=== PATIENT | male | born 1955 | race Caucasian/White ===

== ENCOUNTER 2019-12-21 07:11 | Day surgery (SDC) | payer OTHER ==
[~2019-12-21] VITALS: Ht 185.4 cm; Wt 95.7 kg
[2019-12-21] MEDS ORDERED: LIDOCAINE-MPF 1%, 2ML ONE (07:40)
[2019-12-21] MEDS ORDERED: LACTATED RINGERS 1,000 ML IV SCH (07:41)
[2019-12-21 07:46] VITALS: BP 142/85
[2019-12-21] MEDS ORDERED: LIDOCAINE-MPF 1%, 2ML INFIL ONE (08:00)
[2019-12-21] MEDS ORDERED: FLUT1BLS INH (08:02)
[2019-12-21] MEDS ORDERED: DHA PO (08:02)
[2019-12-21] MEDS ORDERED: TAMS-11 PO (08:02)
[2019-12-21] MEDS ORDERED: OLME1TAB PO (08:02)
[2019-12-21] MEDS ORDERED: ROSU20TA2 PO (08:02)
[2019-12-21] MEDS ORDERED: D3 PO (08:02)
[2019-12-21] MEDS ORDERED: METF500T17 PO (08:02)
[2019-12-21] MEDS ORDERED: MIDAZOLAM 1 MG/ML, 2ML ONE (08:23)
[2019-12-21] MEDS ORDERED: FENTANYL PF 250 MCG/5ML ONE (08:23)
[2019-12-21 08:26] LABS: ALBUMIN 3.6 g/dL (3.4-5.0); ANION GAP 3 mmol/L (5-15); CALCIUM 8.3 mg/dL (8.5-10.1); CHLORIDE 110 mmol/L (98-107)
[2019-12-21 08:30] LABS: ALANINE AMINOTRANSFERASE 22 U/L (12-78); ALKALINE PHOSPHATASE 53 U/L (45-117); BILIRUBIN,TOTAL 0.7 mg/dL (0.2-1.0); CREATININE 0.86 mg/dL (0.7-1.3); TOTAL PROTEIN 7.7 g/dL (6.4-8.2)
[2019-12-21] MEDS ORDERED: HYDROmorphone 2 MG/ML, 1ML IVPush PRN (09:30)
[2019-12-21] MEDS ORDERED: hydrALAzine 20 MG/ML, 1ML IV PRN (09:30)
[2019-12-21] MEDS ORDERED: OXYcodone 5 MG/5 ML ORAL.SOL UDC PO PRN (09:30)
[2019-12-21] MEDS ORDERED: LABETALOL 5MG/ML, 20ML IV PRN (09:30)
[2019-12-21] MEDS ORDERED: PROMETHAZINE 25 MG/ML, 1ML IV PRN (09:30)
[2019-12-21] MEDS ORDERED: ACETAMINOPHEN 325 MG TABLET PO PRN (09:30)
[2019-12-21] MEDS ORDERED: KETOROLAC 30 MG/1 ML IV PRN (09:30)
[2019-12-21] MEDS ORDERED: DIAZEPAM 5 MG/ML, 2ML IVPush PRN (09:30)
[2019-12-21] MEDS ORDERED: MEPERIDINE/PF 25MG/0.5ML IVPush PRN (09:30)
[2019-12-21] MEDS ORDERED: ALBUTEROL SULFATE 2.5 MG/3 ML NPPB PRN (09:30)
[2019-12-21] MEDS ORDERED: SUCCINYLCHOLINE 20 MG/ML, 10ML ONE (09:59)
[2019-12-21] MEDS ORDERED: NEOSTIGMINE 1 MG/ML, 10ML ONE (09:59)
[2019-12-21] MEDS ORDERED: GLYCOPYRROLATE 0.2MG/1ML, 5ML ONE (09:59)
[2019-12-21] MEDS ORDERED: ONDANSETRON 2MG/ML, 2ML ONE (09:59)
[2019-12-21] MEDS ORDERED: DEXAMETHASONE 4 MG/ML, 1ML ONE (09:59)
[2019-12-21] MEDS ORDERED: ROCURONIUM 10MG/ML,5ML ONE (09:59)
[2019-12-21] MEDS ORDERED: CEFAZOLIN 1,000 MG ONE (09:59)
[2019-12-21] MEDS ORDERED: PROPOFOL 10 MG/ML, 20ML ONE (09:59)
[2019-12-21] MEDS ORDERED: SUGAMMADEX 200 MG/2 ML IVPush ONE (10:00)
[2019-12-21] MEDS ORDERED: FENTANYL PF 100 MCG/2ML ONE (10:32)
[2019-12-21] MEDS: FENTANYL PF 100 MCG/2ML IV PRN ×2 (10:34→10:44)
[2019-12-21] MEDS ORDERED: ACETAMINOPHEN 650 MG/20.3 ML UDC ONE (10:45)
[2019-12-21] MEDS ORDERED: KETOROLAC 30 MG/1 ML ONE (10:45)
[2019-12-21] MEDS ORDERED: OXYcodone 5 MG/5 ML ORAL.SOL UDC ONE (10:46)
[2019-12-21] MEDS ORDERED: morphine SULFATE 10 MG/ML, 1ML ONE (12:18)
== END 2019-12-21 15:05 | disposition home or self-care (01) ==
LOC: OUT 07:11
PROVIDERS: ATTEND Orthopaedic Surgery
DX: S46.211A Strain of muscle, fascia and tendon of other parts of biceps, right arm, initial encounter (principal); E11.9 Type 2 diabetes mellitus without complications; I10 Essential (primary) hypertension; E78.5 Hyperlipidemia, unspecified; J45.909 Unspecified asthma, uncomplicated; Z79.84 Long term (current) use of oral hypoglycemic drugs; Z79.899 Other long term (current) drug therapy; W20.8XXA Other cause of strike by thrown, projected or falling object, initial encounter; Y93.89 Activity, other specified; Y92.89 Other specified places as the place of occurrence of the external cause; Y99.8 Other external cause status
CPT/HCPCS: 24342; 36415; 73070; 80053; 82962; 93005; C1713; J0690; J1100; J1885; J2250; J2405; J2704; J3010; 76000; J2710; J0330